=== PATIENT | female | born 1980 | race Caucasian/White ===

== ENCOUNTER → 2017-03-02 | Outpatient (CLI) | payer BC | LOC: COL.RAD 11:15 | DX: M25.551 Pain in right hip (principal) ==

== ENCOUNTER 2017-04-28 10:00 | Outpatient (RCR) | payer BC | END 2017-04-30 | disposition still patient (30) | LOC: MKS.ESL.PT | DX: M43.16 Spondylolisthesis, lumbar region (principal) ==

== ENCOUNTER 2017-05-15 10:00 | Outpatient (RCR) | payer BC | END 2017-05-21 10:28 | disposition home or self-care (01) | LOC: MKS.ESL.PT 10:00 | DX: M17.11 Unilateral primary osteoarthritis, right knee (principal); M54.5 Low back pain; R20.2 Paresthesia of skin ==

== ENCOUNTER 2017-07-20 14:29 | Outpatient (RCR) | payer BC | END 2017-10-18 | disposition home or self-care (01) | LOC: MKS.ESL.PT | DX: M47.816 Spondylosis without myelopathy or radiculopathy, lumbar region (principal); M47.817 Spondylosis without myelopathy or radiculopathy, lumbosacral region ==

== ENCOUNTER → 2019-06-20 | Outpatient (CLI) | payer BC | LOC: MC.RAD 14:52 | DX: Z12.31 Encounter for screening mammogram for malignant neoplasm of breast (principal) ==

== ENCOUNTER → 2019-06-24 | Outpatient (CLI) | payer BC | LOC: MC.RAD 09:26 | DX: N63.20 Unspecified lump in the left breast, unspecified quadrant (principal) ==

== ENCOUNTER → 2019-07-01 | Outpatient (CLI) | payer BC | LOC: MC.RAD 12:53 | DX: Z12.31 Encounter for screening mammogram for malignant neoplasm of breast (principal); N63.20 Unspecified lump in the left breast, unspecified quadrant ==

== ENCOUNTER → 2020-02-06 | Outpatient (CLI) | payer BC | LOC: ZCOL.LAB 16:41 | DX: Z20.828 Contact with and (suspected) exposure to other viral communicable diseases (principal) ==

== ENCOUNTER → 2021-10-02 | Outpatient (CLI) | payer BC | LOC: MC.RAD 10:38 | DX: Z12.31 Encounter for screening mammogram for malignant neoplasm of breast (principal) ==

== ENCOUNTER → 2022-02-12 | Outpatient (CLI) | payer BC | LOC: COL.RAD 10:21 | DX: R51.9 Headache, unspecified (principal) | CPT/HCPCS: A9575 ==

== ENCOUNTER → 2023-10-27 | Outpatient (CLI) | payer BC ==
[~2023-10-27] MED LIST: B-121000 MCG PO; ELDERBERRY PO; LEXAPRO 10MG10 MG PO; VITAMIN D31000 I1 PO; WEGOVY1 MG/0.5 M SQ; WELLBUTRIN XL300 M1 PO; ZYRTEC 10MG10 MG PO; [UNRECOGNIZED DRUG - OTHER] PO
== END ==
LOC: MC.RAD 11:13
DX: Z12.31 Encounter for screening mammogram for malignant neoplasm of breast (principal)

== ENCOUNTER 2023-11-05 06:24 | Day surgery (SDC) | payer BC ==
[~2023-11-05] VITALS: Ht 177.8 cm; Wt 111.4 kg
[~2023-11-05 06:24] MED LIST changes: -B-121000 MCG PO; -ELDERBERRY PO; -LEXAPRO 10MG10 MG PO; +LR 1,000 ML IV SCH; +Ondansetron 4 MG/2 ML VIAL IV PRN; -VITAMIN D31000 I1 PO; -WEGOVY1 MG/0.5 M SQ; -WELLBUTRIN XL300 M1 PO; -ZYRTEC 10MG10 MG PO; -[UNRECOGNIZED DRUG - OTHER] PO
[2023-11-05] MEDS ORDERED: ELDERBERRY PO (07:47)
[2023-11-05] MEDS ORDERED: B-121000 MCG PO (07:47)
[2023-11-05] MEDS ORDERED: VITAMIN D31000 I1 PO (07:48)
[2023-11-05] MEDS ORDERED: [UNRECOGNIZED DRUG - OTHER] PO (07:48)
[2023-11-05] MEDS ORDERED: WELLBUTRIN XL300 M1 PO (07:49)
[2023-11-05] MEDS ORDERED: LEXAPRO 10MG10 MG PO (07:49)
[2023-11-05] MEDS ORDERED: ZYRTEC 10MG10 MG PO (07:50)
[2023-11-05] MEDS ORDERED: WEGOVY1 MG/0.5 M SQ (07:52)
[2023-11-05] MEDS ORDERED: Lidocaine PF 2% (20 MG/ML) 5 ML VIAL ONE (08:12)
[2023-11-05] MEDS ORDERED: ePHEDrine 50 MG/ML VIAL ONE (08:13)
[2023-11-05 08:55] VITALS: BP 100/50; PULSE 91; TEMP 97.7
[2023-11-05 09:00] VITALS: BP 100/57; PULSE 77
[2023-11-05 09:15] VITALS: BP 97/62; PULSE 84
--- NOTE | 2023-11-05 10:09 | NUR ---
0855 Received report from EMMANUEL Inrgam. Patient returned to [facility]. Patient is alert and answers questions appropriately, able to ambulate from cart to recliner with assistance. 0908 Patient given a muffin and juice for a PO challenge. Tolerated well. 0940 Dr. Castellon in room to update the patient on results and plan for care. 0930 Physician discharge instructions and printed patient educational materials reviewed with the patient. Questions invited and answered. 0943 Patient to lobby via wheelchair for a ride home with her friend in [facility].
[2023-11-05 10:44] VITALS: BP 119/75; PULSE 95; TEMP 97.4
== END 2023-11-05 09:43 | disposition home or self-care (01) ==
LOC: SDCO 06:24
DX: Z12.11 Encounter for screening for malignant neoplasm of colon (principal); K57.30 Diverticulosis of large intestine without perforation or abscess without bleeding; E66.01 Morbid (severe) obesity due to excess calories
CPT/HCPCS: J2704; J7120